=== PATIENT | female | born 1980 | race Caucasian/White ===

== ENCOUNTER 2017-08-22 14:02 | Inpatient (IN) | payer MEDICAID ==
[~2017-08-22] VITALS: Ht 152.4 cm; Wt 68.2 kg
[~2017-08-22 14:02] MED LIST: NITR-58 PO; PHEN-537 PO
[2017-08-22] MEDS ORDERED: morphine 10 MG INJ IM ONE ×2 (15:00→18:30)
--- NOTE | 2017-08-22 15:06 | RADRPT ---
PROCEDURE: US OB biophysical profile. CLINICAL INDICATION: decreased movements, contractions TECHNIQUE: Multiple sonographic images of the pelvis were obtained. The images were reviewed on a PACS workstation. COMPARISON: No prior studies are available for comparison. FINDINGS: There is a single viable intrauterine gestation. Cardiac activity is present with 158 beats per min [place]. There is a vertex presentation. The placenta is maternal right. There is no evidence of placental abruption. There is a normal amount of amniotic fluid with an NANCY = 17.3 cm. Biophysical profile: movement 2/2 tone 2/2. breathing 2/2 NANCY 2/2 Total 05/06 RPTAT: AA . IMPRESSION: Normal biophysical profile. . .Andrew Roque MD, MD Date Time Electronically viewed and signed by .Andrew Roque MD, MD on 08/22/2017 15:06 .S/
[2017-08-22] MEDS ORDERED: LACTATED RINGER'S 1,000 ML IV SCH (15:30)
[2017-08-22] MEDS ORDERED: OXYTOCIN 30 UNITS/LR 500 ML IV SCH ×2 (18:30)
[2017-08-22] MEDS ORDERED: OXYTOCIN 30 UNITS/LR 500 ML IV PRN (18:30)
[2017-08-22] MEDS ORDERED: MISOPROSTOL 200 MCG TAB PR PRN (18:30)
[2017-08-22] MEDS ORDERED: CARBOPROST 250 MCG INJ IM PRN (18:30)
[2017-08-22] MEDS ORDERED: LACTATED RINGER'S 1,000 ML IV PRN (18:30)
[2017-08-22] MEDS ORDERED: LIDOCAINE 1% (MPF) 30 ML INJ INJ PRN (18:30)
[2017-08-22] MEDS ORDERED: METHYLERGONOVINE 0.2 MG INJ IM PRN (18:30)
[2017-08-22 19:05] VITALS: BP 119/78; PULSE 79; RESP 18; Ht 152.4 cm; Wt 68.2 kg
[2017-08-22] MEDS: LACTATED RINGER'S 1,000 ML IV SCH (19:22)
[2017-08-22 21:16] LABS: BASOPHILS % 0.3 % (0.0-2.0); EOSINOPHILS # 0.1 10^3/ul (0.0-0.5); EOSINOPHILS % 1.2 % (0.0-7.0); HEMATOCRIT 36.6 % (37.0-47.0); HEMOGLOBIN 12.2 g/dl (12.0-16.0); LYMPHOCYTES # 1.2 10^3/ul (0.8-2.9); LYMPHOCYTES % 11.9 % (15.0-51.0); MEAN CORPUSCULAR HEMOGLOBIN 30.5 pg (29.0-33.0); MEAN CORPUSCULAR HGB CONC 33.3 g/dl (32.0-37.0); MEAN CORPUSCULAR VOLUME 91.5 fl (82.0-101.0); MEAN PLATELET VOLUME 12.6 fl (7.4-10.4); MONOCYTE # 0.4 10^3/ul (0.3-0.9); MONOCYTES % 3.9 % (0.0-11.0); NEUTROPHILS % 82.3 % (39.0-77.0); PLATELET COUNT 186 10^3/UL (140-415); RED CELL DISTRIBUTION WIDTH 13.1 % (11.5-14.5); WHITE BLOOD COUNT 9.7 10^3/ul (4.8-10.8)
[2017-08-22 21:37] LABS: INR 0.94; PARTIAL THROMBOPLASTIN TIME 26.1 Sec (25.0-35.0); PROTIME 12.6 Sec (12.2-14.2)
--- NOTE | 2017-08-22 23:16 | TRIAGE ---
OB Triage Datetime Report Generated by CPN: 08/22/2017 23:16 Datetime: 08/22/2017 23:00 Labor Evaluation Frequency: 4-5 Monitor Mode: External Duration (sec)2399: 50-70 Pattern: Normal: <= 5 Contractions in 10 Minutes Heart Rate FHR Baseline Rate: 135 Monitor Mode: External US FHR Baseline Changes: No Baseline Change Variability: Moderate 6-25 bpm Accelerations: 15X15 Datetime: 08/22/2017 22:40 Contraction Comments: EXTERNAL MONITORING BANDS ADJUSTED Datetime: 08/22/2017 22:00 Labor Evaluation Frequency: 2-5 Monitor Mode: External Duration (sec)2399: 70-90 Pattern: Normal: <= 5 Contractions in 10 Minutes Heart Rate FHR Baseline Rate: 145 Monitor Mode: External US FHR Baseline Changes: No Baseline Change Variability: Moderate 6-25 bpm Accelerations: 15X15 Category: Category I Datetime: 08/22/2017 21:00 Labor Evaluation Frequency: 2-5 Monitor Mode: External Duration (sec)2399: 60-80 Pattern: Normal: <= 5 Contractions in 10 Minutes Heart Rate FHR Baseline Rate: 135 Monitor Mode: External US FHR Baseline Changes: No Baseline Change Variability: Moderate 6-25 bpm Datetime: 08/22/2017 20:00 Labor Evaluation Frequency: 2-5 Monitor Mode: External Duration (sec)2399: 70-90 Pattern: Normal: <= 5 Contractions in 10 Minutes Heart Rate FHR Baseline Rate: 145 Monitor Mode: External US FHR Baseline Changes: No Baseline Change Variability: Moderate 6-25 bpm Category: Category I Datetime: 08/22/2017 19:50 Pain Assessment Comments: pt. sleeping, respirations visible Datetime: 08/22/2017 19:45 Vaginal Exam Dilatation (cms): 0.0 Effacement (%): 0 Station: -4 Exam By: dr. tateuman Datetime: 08/22/2017 19:42 Pain Assessment Comments: pt. moving position, pt. sitting up in bed, extra warm blanket provided to pt. blue emesis bag provided to pt. pt. feeling nauseous post morphine admin Datetime: 08/22/2017 19:41 Assessment Type: Ongoing Assessment Maternal Assessment Level of Consciousness: Fully Conscious Headache: Denies Blurred Vision: No Respiratory Effort: Unlabored; Regular Rhythm; Equal Expansion Nausea/Vomiting: Present RUQ Epigastric Pain: Denies Facial Edema: None Fall Risk Assessment History of Falling: (0) No Secondary Diagnosis: (0) No Ambulatory Aid: (0) Bedrest/Nurse Assist IV Therapy: (20) Yes Gait: (0) Normal/Bedrest/Immobile Mental Status: (0) Oriented to Own Ability Fall Score: 20 Fall Risk Score Definition: No Risk: No action required Datetime: 08/22/2017 19:00 Stage of : Labor Assessment Type: Admission Assessment Vaginal Bleeding: None Maternal Assessment Level of Consciousness: Fully Conscious DTR's/Clonus: DTRs 2+; No Clonus Headache: Denies Blurred Vision: No Respiratory Effort: Unlabored; Regular Rhythm; Equal Expansion Breath Sounds, Left: Clear and Equal Breath Sounds, Right: Clear and Equal Nausea/Vomiting: Denies RUQ Epigastric Pain: Denies Lower Extremities Edema: None Degree: None Upper Extremities Edema: None Degree: None Facial Edema: None Fall Risk Assessment History of Falling: (0) No Secondary Diagnosis: (0) No Ambulatory Aid: (0) Bedrest/Nurse Assist IV Therapy: (20) Yes Gait: (0) Normal/Bedrest/Immobile Mental Status: (0) Oriented to Own Ability Fall Score: 20 Fall Risk Score Definition: No Risk: No action required Labor Evaluation Frequency: 3-4 Duration (sec)2399: 50-60 Quality: Mild Pattern: Normal: <= 5 Contractions in 10 Minutes Resting Tone Emma: Relaxed Heart Rate FHR Baseline Rate: 140 Variability: Moderate 6-25 bpm Decelerations: None Category: Category I Pain Assessment Pain Scale: 6 Pain Presence: Intermittent Pain Type: Contraction Pain Location: Abdomen Pain Goal: 3 Datetime: 08/22/2017 18:59 Time of Arrival: 08/22/2017 18:45 EGA: 37.2 Arrived By: Wheelchair Arrived From: Other Unit in Hospital Datetime: 08/22/2017 18:10 Stage of : OB Triage Datetime: 08/22/2017 16:30 Labor Evaluation Frequency: 3-4 Monitor Mode: External Duration (sec)2399: 50-60 Quality: Mild Resting Tone Emma: Relaxed Heart Rate FHR Baseline Rate: 135 Monitor Mode: External US Variability: Moderate 6-25 bpm Accelerations: 10X10 Decelerations: None Category: Category I Pain Assessment Pain Scale: 3 Pain Presence: Intermittent Pain Type: Cramping Pain Location: Abdomen Pain Goal: 3 Pain Relief Measures: Comfort Measures Datetime: 08/22/2017 15:31 Labor Evaluation Frequency: 2-3 Monitor Mode: External Duration (sec)2399: 60-70 Resting Tone Emma: Relaxed Heart Rate FHR Baseline Rate: 145 Monitor Mode: External US Variability: Moderate 6-25 bpm Accelerations: 10X10 Decelerations: None Category: Category I Pain Assessment Pain Scale: 4 Pain Presence: Intermittent Pain Type: Cramping Pain Location: Abdomen; Perineum Pain Goal: 3 Pain Relief Measures: Comfort Measures Datetime: 08/22/2017 14:42 Stage of : OB Triage Datetime: 08/22/2017 14:30 Stage of : OB Triage Assessment Type: Triage Maternal Assessment Level of Consciousness: Fully Conscious DTR's/Clonus: DTRs 2+; No Clonus Headache: Denies Blurred Vision: No Respiratory Effort: Unlabored; Regular Rhythm; Equal Expansion Breath Sounds, Left: Clear and Equal Breath Sounds, Right: Clear and Equal Nausea/Vomiting: Denies RUQ Epigastric Pain: Denies Facial Edema: None Temperature Route: Axillary Fall Risk Assessment History of Falling: (0) No Secondary Diagnosis: (0) No Ambulatory Aid: (0) Bedrest/Nurse Assist IV Therapy: (0) No Gait: (0) Normal/Bedrest/Immobile Mental Status: (0) Oriented to Own Ability Fall Score: 0 Fall Risk Score Definition: No Risk: No action required Labor Evaluation Frequency: 2-3 Monitor Mode: External Duration (sec)2399: 40-50 Quality: Moderate Pattern: Normal: <= 5 Contractions in 10 Minutes Resting Tone Emma: Relaxed Interventions: Sterile Vaginal Exam Heart Rate FHR Baseline Rate: 145 Monitor Mode: External US Variability: Moderate 6-25 bpm Accelerations: 10X10 Decelerations: None Category: Category I Pain Assessment Pain Scale: 4 Pain Presence: Intermittent Pain Type: Cramping; Contraction Pain Location: Abdomen Pain Goal: 3 Pain Relief Measures: Comfort Measures Presentation 'A': Cephalic Datetime: 08/22/2017 14:29 Time of Arrival: 08/22/2017 13:48 EGA: 37.2 Arrived By: Ambulatory Arrived From: Home Chief Complaint: C/O UC'S THAT STARTED APPROX 1300, SMALL AMT OF BLEEDING, DENIES LEAKING Movement: Present Contractions: Regular Contractions: 2-3 Rupture of Membranes: Denies Vaginal Bleeding: Small Vaginal Discharge: Present Recent Sexual Intercouse: Denies Abdominal Trauma: Not Applicable Patient Complaints: Contractions; Cramping Time Provider Notified: 08/22/2017 14:42 Provider Notified: CARLIN Initial Plan: MONITOR, VE, Datetime: 08/22/2017 14:16 Vaginal Exam Dilatation (cms): 1.5 Effacement (%): 50 Station: -4
[2017-08-23] MEDS: LACTATED RINGER'S 1,000 ML IV SCH ×3 (02:30→18:09)
[2017-08-23] MEDS ORDERED: AMPICILLIN 2 GM/NS (PMX) 100 ML IV ONE (04:00)
[2017-08-23] MEDS ORDERED: CLINDAMYCIN 900 MG INJ IM ONE (08:00)
[2017-08-23] MEDS: AMPICILLIN 1 GM/NS (PMX) 50 ML IV SCH ×3 (08:37→16:25)
[2017-08-23] MEDS ORDERED: EPHEDrine SULFATE 50 MG/5 ML SYG IV PRN (15:00)
[2017-08-23] MEDS ORDERED: ONDANSETRON 4 MG INJ IV PRN (15:00)
[2017-08-23] MEDS ORDERED: DIPHENHYDRAMINE 50 MG INJ IV PRN (15:00)
[2017-08-23] MEDS ORDERED: FENTAnyl 2MCG/ML-ROPIV 0.2% 100 ML BAG EPI SCH (15:00)
[2017-08-23] MEDS ORDERED: NALOXONE (0.4 MG/ML) INJ IV PRN (15:00)
--- NOTE | 2017-08-23 15:33 | RADRPT ---
PROCEDURE: US OB. CLINICAL INDICATION: Evaluate well-being, amniotic fluid index TECHNIQUE: Multiple sonographic images of the pelvis were obtained. The images were reviewed on a PACS workstation. COMPARISON: No prior studies are available for comparison. FINDINGS: There is a single viable intrauterine gestation. Cardiac activity is present with 158 beats per min [place] There is a cephalic and variable presentation. The placenta is posterior. There is no evidence for an abruption or placenta previa. There is a normal amount of amniotic fluid with an NANCY = 16.8 cm There are no adnexal masses.. IMPRESSION: 1. Single viable intrauterine gestation in variable presentation. 2. Posterior placenta without evidence of previa or abruption. 3. Normal amount of amniotic fluid with an NANCY of 16.8 cm. RPTAT:AAJJ Physician Alessia Date Time Electronically viewed and signed by Physician Alessia on 08/23/2017 15:33 /
[2017-08-23 16:24] LABS: BASOPHILS % 0.2 % (0.0-2.0); EOSINOPHILS # 0.1 10^3/ul (0.0-0.5); EOSINOPHILS % 0.8 % (0.0-7.0); HEMATOCRIT 33.3 % (37.0-47.0); HEMOGLOBIN 11.2 g/dl (12.0-16.0); LYMPHOCYTES # 0.6 10^3/ul (0.8-2.9); LYMPHOCYTES % 7.2 % (15.0-51.0); MEAN CORPUSCULAR HEMOGLOBIN 30.4 pg (29.0-33.0); MEAN CORPUSCULAR HGB CONC 33.6 g/dl (32.0-37.0); MEAN CORPUSCULAR VOLUME 90.5 fl (82.0-101.0); MEAN PLATELET VOLUME 12.1 fl (7.4-10.4); MONOCYTE # 0.3 10^3/ul (0.3-0.9); MONOCYTES % 2.9 % (0.0-11.0); NEUTROPHIL # 7.5 10^3/ul (1.6-7.5); NEUTROPHILS % 88.2 % (39.0-77.0); PLATELET COUNT 175 10^3/UL (140-415); RED BLOOD COUNT 3.68 10^6/ul (4.20-5.40); RED CELL DISTRIBUTION WIDTH 13.3 % (11.5-14.5); WHITE BLOOD COUNT 8.5 10^3/ul (4.8-10.8)
--- NOTE | 2017-08-23 16:59 | HP ---
Date/Time of Note Date/Time of Note Late entry DATE: 08/22/17 OB - History Hx of Present Free Text/Dictation 36-year-old female 4 para 3 at 37 weeks gestation admitted complaining of liver pain started a few hours prior to admission Chief Complaint: Liver contractions Last Menstrual Period: Nov 06, 2016 Estimated Due Date: Sep 10, 2017 : 4 Para: 3 Care: Good Care Ultrasounds: Normal mid trimester US Obstetrical Complications: None Medical Complications: None Past Family/Social History * Past Medical, Surgical, Family and Obstetric Histories reviewed from chart. Blood Type: O+ Rubella: immune RPR/VDRL: Negative GBS Status: Unknown HBsAG: Negative OB Admission Exam Vital Signs Vital Signs Vital Signs Date Time Temp Pulse Resp B/P Pulse Ox O2 Delivery O2 Flow Rate FiO2 08/22/17 19:05 97.8 79 18 119/78 Physical Exam HEENT: WNL Heart: Rhythm Normal Lungs: Clear, Equal Abdomen: WNL Extremities: Normal Reflexes: Normal Cervical Dilatation: Fingertip Effacement: 25% Station: -3 Membranes: Intact Heart Rate: 150's Accelerations: Accelerations Present Decelerations: No Decelerations Varibility: Moderate Contractions on Admission: < 5 Minutes Apart Date/Time Contractions Began: August 22, 2017 Frequency of Contractions: Every 3 4 minutes Duration: Over 50/60 seconds Intensity: Firm Last 72 hours Lab Results CBC & BMP 08/22/17 20:56 08/23/17 16:18 OB Assessment/Plan Other Assessment: 37 weeks gestation Persistent uterine contractions not relieving Plan: Expectant Management Other plan: Continue to observe for cervical dilatation EULA MEANS MD Aug 23, 2017 16:59
--- NOTE | 2017-08-23 17:01 | PN ---
Date/Time of Note Date/Time of Note DATE: 08/23/17 TIME: 16:59 OB Subjective Subjective Subjective Was complaining of severe liver contractions every 2 3 minutes OB Objective Objective Objective Temperature was 99 9 Cervix remained unchanged General physical exam is grossly normal On electronic monitoring heart tones are reactive however tachycardic Normal amniotic fluid volume OB Assessment/Plan Other Assessment: 37 weeks gestation Labor contractions Possible urinary tract infection versus amnionitis Hard to interpret the data because of unknown GBS Other plan: Started patient on Unasyn Epidural anesthesia was given with considerable improvement of symptoms We will continue Unasyn for at least 24-48 hours Obtain GBS results EULA MEANS MD Aug 23, 2017 17:01
[2017-08-23] MEDS: AMPICILLIN/SULB 3 GM/NS (PMX) 100 ML IVPB SCH ×2 (18:47→23:52)
[2017-08-24] MEDS ORDERED: OXYTOCIN 30 UNITS/LR 500 ML IV SCH ×2 (00:30→12:20)
[2017-08-24] MEDS: LACTATED RINGER'S 1,000 ML IV SCH ×2 (01:29→09:10)
[2017-08-24] MEDS ORDERED: GUAIFENESIN 20 MG/ML 5ML CUP PO PRN (06:30)
[2017-08-24] MEDS: AMPICILLIN/SULB 3 GM/NS (PMX) 100 ML IVPB SCH ×4 (06:36→23:50)
--- NOTE | 2017-08-24 10:22 | LDN ---
Date/Time of Note Date/Time of Note DATE: 08/24/17 TIME: 10:20 Delivery Summary Placenta Delivered: Spontaneously Meconium: Light Episiotomy: No Laceration repair: primary perineal repiared with 3-0 vicryl Anesthesia type: Epidural Sponge & Needle done & correct: Yes All needle counts correct: Yes Any foreign bodies felt in the: No Problems: Infant Delivery Information Sex Sex: male Suctioning Nose & mouth suctioned at [place]: Yes Umbilical Cord Umbilical cord with: 3 Vessels Cord presentations: nuchal cord Nuchal cord present X: 1 Cord Blood was obtained: Yes FELICIANO OJEDA MD Aug 24, 2017 10:22
[2017-08-24 11:04] LABS: ADD UMIC YES; UR ASCORBIC ACID NEGATIVE (NEGATIVE); UR BACTERIA FEW /HPF (NONE SEEN); UR BILIRUBIN (Dip) NEGATIVE (NEGATIVE); UR BLOOD (Dip) 3+ mg/dL (NEGATIVE); UR CLARITY CLEAR (CLEAR); UR COLOR YELLOW (YELLOW); UR GLUCOSE (Dip) NEGATIVE (NEGATIVE); UR KETONES (Dip) 2+ mg/dL (NEGATIVE); UR LEUKOCYTE ESTERASE (Dip) NEGATIVE Leu/ul (NEGATIVE); UR NITRITE (Dip) NEGATIVE (NEGATIVE); UR RBC > 182 /HPF (0-5); UR SPECIFIC GRAVITY (Dip) 1.012 (1.003-1.030); UR TOTAL PROTEIN (Dip) 1+ mg/dl (NEGATIVE); UR UROBILINOGEN (Dip) 2+ mg/dL (NEGATIVE)
[2017-08-24] MEDS: LACTATED RINGER'S 1,000 ML IV* SCH ×2 (12:20→17:38)
[2017-08-24] MEDS ORDERED: BENZOCAINE 20% 56 ML SPRAY TOP PRN (12:30)
[2017-08-24] MEDS ORDERED: METHYLERGONOVINE 0.2 MG INJ IM PRN (12:30)
[2017-08-24] MEDS ORDERED: CARBOPROST 250 MCG INJ IM PRN (12:30)
[2017-08-24] MEDS ORDERED: WITCH HAZEL/GLYCERIN PAD PR PRN (12:30)
[2017-08-24] MEDS ORDERED: HYDROCODONE/APAP (5/325) TAB PO PRN (12:30)
[2017-08-24] MEDS ORDERED: ACETAMINOPHEN 325 MG TAB PO PRN ×2 (12:30)
[2017-08-24] MEDS ORDERED: OXYTOCIN 30 UNITS/LR 500 ML IV PRN (12:30)
[2017-08-24] MEDS ORDERED: ONDANSETRON 4 MG INJ IV PRN (12:30)
[2017-08-24] MEDS ORDERED: MISOPROSTOL 200 MCG TAB PR PRN (12:30)
[2017-08-24 12:45] VITALS: BP 121/79; PULSE 86; RESP 20
[2017-08-24 16:10] VITALS: BP 107/66; PULSE 86; RESP 20
[2017-08-24] MEDS: IBUPROFEN 600 MG TAB PO SCH ×2 (17:37→23:50)
[2017-08-24 19:45] VITALS: BP 85/57; PULSE 80; RESP 18
[2017-08-24] MEDS: SENNA/DOCUSATE NA (8.6MG/50MG) TAB PO SCH (21:02)
[2017-08-25] VITALS: BP 102/66; PULSE 60; RESP 18
[2017-08-25] MEDS: LACTATED RINGER'S 1,000 ML IV* SCH ×2 (02:22→13:57)
[2017-08-25 04:15] VITALS: BP 88/52; PULSE 66; RESP 18
[2017-08-25] MEDS: IBUPROFEN 600 MG TAB PO SCH ×4 (05:42→23:48)
[2017-08-25] MEDS: AMPICILLIN/SULB 3 GM/NS (PMX) 100 ML IVPB SCH ×4 (05:42→23:48)
[2017-08-25 08:00] VITALS: BP 107/53; PULSE 65; RESP 20
--- NOTE | 2017-08-25 09:40 | RADRPT ---
PROCEDURE: XR Chest. CLINICAL INDICATION: chest pain TECHNIQUE: PA and lateral views of the chest were obtained COMPARISON: None FINDINGS: The heart and mediastinum are within normal limits. There are bilateral lower lobe infiltrates. There is no pleural effusion or pneumothorax. The bones and soft tissues are unremarkable. RPTAT: AA IMPRESSION: Bilateral lower lobe infiltrates. .Andrew Roque MD, MD Date Time Electronically viewed and signed by .Andrew Roque MD, on 08/25/2017 09:39 .S/
--- NOTE | 2017-08-25 10:01 | QN ---
Documentation Comment day 1 Patient complains of productive cough since admission T-max 100 in the last 24 hours Abdomen soft nontender/nondistended Fundus firm Extremities nontender Assessment plan CBC, CMP today Chest x-ray today We will obtain medical consult for evaluation of URI Continue with antibiotics Continue with present management ELEANOR STEVENS MD Aug 25, 2017 10:01
[2017-08-25 11:14] LABS: ABNORMAL IP MESSAGE 1; BASOPHILS % 0.2 % (0.0-2.0); EOSINOPHILS # 0.1 10^3/ul (0.0-0.5); EOSINOPHILS % 1.8 % (0.0-7.0); HEMATOCRIT 31.9 % (37.0-47.0); HEMOGLOBIN 10.7 g/dl (12.0-16.0); LYMPHOCYTES # 0.6 10^3/ul (0.8-2.9); LYMPHOCYTES % 8.9 % (15.0-51.0); MEAN CORPUSCULAR HEMOGLOBIN 30.6 pg (29.0-33.0); MEAN CORPUSCULAR HGB CONC 33.5 g/dl (32.0-37.0); MEAN CORPUSCULAR VOLUME 91.1 fl (82.0-101.0); MEAN PLATELET VOLUME 12.1 fl (7.4-10.4); MONOCYTE # 0.3 10^3/ul (0.3-0.9); MONOCYTES % 3.9 % (0.0-11.0); NEUTROPHIL # 5.7 10^3/ul (1.6-7.5); NEUTROPHILS % 84.7 % (39.0-77.0); PLATELET COUNT 141 10^3/UL (140-415); RED CELL DISTRIBUTION WIDTH 13.6 % (11.5-14.5); WHITE BLOOD COUNT 6.7 10^3/ul (4.8-10.8)
[2017-08-25 11:21] LABS: POSITIVE DIFF @See below
[2017-08-25 11:28] LABS: ALBUMIN 2.5 g/dl (3.3-4.9); ALBUMIN/GLOBULIN RATIO 0.89; BILIRUBIN,INDIRECT 0.1 mg/dl (0-1.1); BILIRUBIN,TOTAL 0.1 mg/dl (0.2-1.3); CALCIUM 8.2 mg/dl (8.4-10.2); CREATININE 0.53 mg/dl (0.44-1.00); POTASSIUM 3.5 mmol/L (3.5-5.1); TOTAL PROTEIN 5.3 g/dl (6.1-8.1)
[2017-08-25 12:00] VITALS: BP 108/72; PULSE 72; RESP 20
[2017-08-25] MEDS: SENNA/DOCUSATE NA (8.6MG/50MG) TAB PO SCH ×2 (12:03→21:21)
--- NOTE | 2017-08-25 12:07 | CONS ---
DATE OF ADMISSION: 08/22/2017 DATE OF CONSULTATION: 08/25/2017 REASON FOR CONSULTATION: Fever. HISTORY OF PRESENT ILLNESS: Isabel is a 36-year-old, 3, para 3, who had presented to Labor and Delivery Department with some abdominal pain and a little bit of vaginal bleeding. The patient was found to be in active labor. However, during labor, she was found to have fever and fever peaked at 101.7. Based on that, urine cultures were sent. Patient was started on Unasyn intravenously by the obstetricians. However, unfortunately the patient was GBS unknown and her information was unavailable. The patient did say she had never had a flu shot. Under. However with antibiotic therapy, the patient went on to have an uneventful delivery and we were consulted to assist in diagnosis and antibiotic management. PAST MEDICAL HISTORY: Essentially none. PAST SURGICAL HISTORY: Patient denies. ALLERGIES: SHE HAS NO KNOWN DRUG ALLERGIES. SOCIAL HISTORY: Denies tobacco, alcohol, or illicit drug use. Also denies exposure to secondhand smoke. MEDICATION: vitamins only. REVIEW OF SYSTEMS: Her twelve point review of system was done. Pertinent findings as in HPI. On admission, the patient had some cough, however, since yesterday, which was not present prior to admission. PHYSICAL EXAMINATION: VITAL SIGNS: At this time, temperature 97.4, pulse 165, respirations 20, blood pressure 107/53, saturations were normal on room air. GENERAL APPEARANCE: Mildly lethargic, regular-looking female, alert and oriented. No distress. HEENT: Head normocephalic. Pupils equal, round, reactive. Mucous membranes moist. Posterior pharynx free of exudate. NECK: Supple. CHEST: When she coughs, she has a she has audible crackles in the bases of her lungs bilaterally posteriorly. Superiorly, her lungs are clear. HEART: S1, S2. No murmurs. ABDOMEN: Still mildly tender from recent delivery, but other than that, nondistended, soft, with normoactive bowel sounds in four quadrants. EXTREMITIES: Lower extremities negative for edema. SKIN: Devoid of rash or jaundice. LABORATORY: Her last CBC was done 08/23/2017. At that time, she had normal white count, hemoglobin was 11.2, platelets 175. She had mild neutrophilia at 88.2. Coag profile is unremarkable. Urinalysis was not suggestive of an infection. She has had some hematuria and some ketonuria. Urine cultures so far have been negative since 08/23/2017. However, blood cultures were not done. A chest x-ray though was just reported and confirms presence of bilateral lower lobe infiltrates. ASSESSMENT: A 36-year-old female, 3, now para 3, who developed fever while in active labor, now managed for bilateral lower lobe pneumonia. RECOMMENDATIONS: As follows: 1. Continue with routine care. 2. Continue Unasyn as the patient has had no fever since commencement of Unasyn and it is adequate coverage for infection. We can switch to oral Augmentin at discharge or even Levaquin if that is considered safe for breast feeding mother. Subsequently patient asked about the flu shot, and I recommend completing antibiotic course prior to administering this administering at discharge. 3. If fever recurs, however, the patient will need a CBC, blood cultures and sputum culture. 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 4. Thank for this consult. We will continue to follow the patient with you. Please feel free to contact us on extension [phone] with any questions. Dictated By: Jeanie Covington MD /shane/jayro /Document#: [id number]
[2017-08-25] MEDS: GUAIFENESIN/DM 5ML CUP PO PRN ×2 (12:18→19:43)
[2017-08-25 16:30] VITALS: BP 103/61; PULSE 94
--- NOTE | 2017-08-25 17:21 | DS ---
Date/Time of Note Date/Time of Note home next day DATE: 08/25/17 TIME: 17:19 Obstetrical Discharge Record Final Diagnosis Final Diagnosis: Term delivered Other Final Diagnosis S/P vaginal delivery Vaginal Delivery Obstetrical Delivery: Spontaneous, Laceration, Repaired Complications Augmentation: Yes (orderred by oncall physician ) Condition on Discharge Physical Assessment Voiding: Yes Bowel Movement: Yes Breast: Soft, non-tender, Filling Fundus: Firm Abdomen and Incision: abdomen: soft bs + Episiotomy: perineum healing Calf Tenderness: No Patient Condition: Good EULA MEANS MD Aug 25, 2017 17:21
--- NOTE | 2017-08-25 17:24 | PD.PPDC ---
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
[2017-08-25] MEDS ORDERED: IBUP-1542 PO (17:25)
[2017-08-25] MEDS ORDERED: LEVO750T25 PO (17:25)
--- NOTE | 2017-08-25 17:29 | DS ---
Date/Time of Note Date/Time of Note DATE: 08/25/17 TIME: 17:27 Discharge Summary Admission/Discharge Info Admit Date/Time Aug 22, 2017 at 18:15 Discharge Date/Time 08/26/2017 Discharge Diagnosis S/P vaginal delivery and bilateral lower lobe pneumonia Patient Condition: Good Procedures vaginal delivery Hx of Present Illness 36 y/o female with uterine contractions at 37 weeks and noticed to have bilateral lower lobe pneumonia Hospital Course uncomplicated Home Meds Active Scripts Ibuprofen* (Ibuprofen*) 600 Mg Tablet, 600 MG PO Q6, #30 TAB 0 Refills Prov:EULA MEANS MD 08/25/17 Levofloxacin* (Levaquin*) 750 Mg Tablet, 750 MG PO DAILY@06, #10 TAB 0 Refills Prov:EULA MEANS MD 08/25/17 Phenazopyridine Hcl* (Pyridium*) 100 Mg Tab, 100 MG PO TID Y for URINARY PAIN, # 9 TAB Prov:SHEYLA VALDEZ 07/23/16 Discontinued Scripts Nitrofurantoin Monohyd Macrocr* (Macrobid*) 100 Mg Capsr, 100 MG PO BID for 7 Days, CAP Prov:SHEYLA VALDEZ 07/23/16 Follow-up Plan 2 weeks Primary Care Provider Care Physician No Primary Time spent on discharge: > 30 minutes Pending Labs Laboratory Tests Test 08/25/17 10:44 White Blood Count 6.710^3/ul (4.8-10.8) Red Blood Count 3.5010^6/ul (4.20-5.40) Hemoglobin 10.7g/dl (12.0-16.0) Hematocrit 31.9% (37.0-47.0) Mean Corpuscular Volume 91.1fl (82.0-101.0) Mean Corpuscular Hemoglobin 30.6pg (29.0-33.0) Mean Corpuscular Hemoglobin Concent 33.5g/dl (32.0-37.0) Red Cell Distribution Width 13.6% (11.5-14.5) Platelet Count 51822^3/UL (140-415) Mean Platelet Volume 12.1fl (7.4-10.4) Neutrophils % 84.7% (39.0-77.0) Lymphocytes % 8.9% (15.0-51.0) Monocytes % 3.9% (0.0-11.0) Eosinophils % 1.8% (0.0-7.0) Basophils % 0.2% (0.0-2.0) Nucleated Red Blood Cells % 0.0/100WBC (0.0-0.0) Neutrophils # 5.710^3/ul (1.6-7.5) Lymphocytes # 0.610^3/ul (0.8-2.9) Monocytes # 0.310^3/ul (0.3-0.9) Eosinophils # 0.110^3/ul (0.0-0.5) Basophils # 0.010^3/ul (0.0-0.1) Nucleated Red Blood Cells # 0.010^3/ul (0.0-0.0) Sodium Level 141mmol/L (135-144) Potassium Level 3.5mmol/L (3.5-5.1) Chloride Level 111mmol/L (97-110) Carbon Dioxide Level 21mmol/L (21-31) Anion Gap 13 (8-16) Blood Urea Nitrogen 3mg/dl (7-20) Creatinine 0.53mg/dl (0.44-1.00) Glucose Level 136mg/dl (70-220) Calcium Level 8.2mg/dl (8.4-10.2) Total Bilirubin 0.1mg/dl (0.2-1.3) Direct Bilirubin 0.00mg/dl (0.00-0.20) Indirect Bilirubin 0.1mg/dl (0-1.1) Aspartate Amino Transf (AST/SGOT) 26IU/L (15-46) Alanine Aminotransferase (ALT/SGPT) 34IU/L (13-69) Alkaline Phosphatase 114IU/L (42-121) Total Protein 5.3g/dl (6.1-8.1) Albumin 2.5g/dl (3.3-4.9) Globulin 2.80g/dl (1.3-3.2) Albumin/Globulin Ratio 0.89 EULA MEANS MD Aug 25, 2017 17:29
[2017-08-25 20:00] VITALS: BP 111/67; PULSE 98; RESP 20
[2017-08-26 04:30] VITALS: BP 105/58; PULSE 81; RESP 18
[2017-08-26] MEDS: IBUPROFEN 600 MG TAB PO SCH ×2 (05:49→11:55)
[2017-08-26] MEDS ORDERED: LEVOFLOXACIN 750 MG TABLET PO SCH (06:00)
[2017-08-26 08:20] VITALS: BP 103/68; PULSE 80; RESP 18
[2017-08-26] MEDS: SENNA/DOCUSATE NA (8.6MG/50MG) TAB PO SCH (09:00)
== END 2017-08-26 18:04 | disposition home or self-care (01) | DRG 775 ==
LOC: OBT 14:02 → L-D 14:04 → OBT 18:15 → PP1 08-24 12:40
PROVIDERS: ADMIT Obstetrics & Gynecology; ATTEND Obstetrics & Gynecology
PROC: 4A1HXCZ Monitoring of Products of Conception, Cardiac Rate, External Approach (ICD-10-PCS; 2017-08-22)
PROC: 10E0XZZ Delivery of Products of Conception, External Approach (ICD-10-PCS; principal; 2017-08-24)
PROC: 0HQ9XZZ Repair Perineum Skin, External Approach (ICD-10-PCS; 2017-08-24)
DX: O99.52 Diseases of the respiratory system complicating childbirth (principal); J18.9 Pneumonia, unspecified organism; O70.0 First degree perineal laceration during delivery; Z37.0 Single live birth; Z3A.37 37 weeks gestation of pregnancy
CPT/HCPCS: 36415; 62319; 71020; 76815; 76818; 80053; 81001; 85025; 85610; 85730; 86592; 86900; 86901; 87040; 87086; 87340; 96372; 99464; G0463; J0290; J0295; J2270; J2590; J3010; J7120

== ENCOUNTER 2019-02-11 02:05 | Emergency (ER) | payer MEDICAID ==
[~2019-02-11] VITALS: Wt 63.8 kg
[~2019-02-11 02:05] MED LIST changes: +IBUP-1542 PO; +LEVO750T25 PO; -NITR-58 PO
[2019-02-11] MEDS ORDERED: HYDROCODONE/APAP (5/325) TAB PO ONE (03:30)
[2019-02-11] MEDS ORDERED: CEPH-443 PO (05:47)
[2019-02-11 05:55] VITALS: BP 119/74; PULSE 60; RESP 18
--- NOTE | 2019-02-11 05:56 | ERD ---
ER Documentation Chief Complaint Chief Complaint R SIDE PELVIC PAIN S/P IUD INSERTION 6 DAYS AGO HPI This is a 38 G4, P4 female presents to the ED complaining of right lower pelvic pain status post having an IUD inserted 6 days ago. Patient states her pain is intermittent, and temporarily improved with ibuprofen. She also presents with a few days of dysuria, frequency, urgency. No vaginal bleeding. No back pain or flank pain. No nausea or vomiting. No other complaints. ROS All systems reviewed and are negative except as per history of present illness. Medications Home Meds Active Scripts Cephalexin* (Keflex*) 500 Mg Capsule, 500 MG PO BID for 7 Days, CAP Prov:GILBERTPAULAKARLOS IDOP-C 02/11/19 Ibuprofen* (Ibuprofen*) 600 Mg Tablet, 600 MG PO Q6, #30 TAB 0 Refills Prov:EULA MEANS MD 08/25/17 Levofloxacin* (Levaquin*) 750 Mg Tablet, 750 MG PO DAILY@06, #10 TAB 0 Refills Prov:EULA MEANS MD 08/25/17 Phenazopyridine Hcl* (Pyridium*) 100 Mg Tab, 100 MG PO TID PRN for URINARY PAIN, #9 TAB Prov:SHEYLA VALDEZ 07/23/16 Allergies Allergies: Coded Allergies: No Known Allergy (Verified , 07/23/16) PMhx/Soc History of Surgery: No Anesthesia Reaction: No Hx Neurological Disorder: No Hx Respiratory Disorders: No Hx Cardiac Disorders: No Hx Psychiatric Problems: No Hx Miscellaneous Medical Probl: No Hx Alcohol Use: No Hx Substance Use: No Hx Tobacco Use: No Smoking Status: Never smoker Physical Exam Vitals Vital Signs Date Temp Pulse Resp B/P (MAP) Pulse Ox O2 O2 Flow FiO2 Time Delivery Rate 02/11/19 98.2 83 20 127/74 97 02:08 (91) Physical Exam Const: No acute distress Head: Atraumatic Eyes: Normal Conjunctiva ENT: Normal External Ears, Nose and Mouth. Neck: Full range of motion. No meningismus. Resp: Clear to auscultation bilaterally Cardio: Regular rate and rhythm, no murmurs Abd: Soft, + mild bilateral pelvic tenderness palpation, left greater than right. Non distended. Normal bowel sounds. Negative McBurney's, negative Mu rphy's. No rebound, no guarding. Skin: No petechiae or rashes Back: No midline or flank tenderness Ext: No cyanosis, or edema Neur: Awake and alert Psych: Normal Mood and Affect Results 24 hrs Laboratory Tests Test 02/11/19 03:35 02/11/19 03:39 Urine Color YELLOW Urine Clarity CLEAR Urine pH 5.0 Urine Specific [place] 1.018 Urine Ketones NEGATIVE mg/dL Urine Nitrite NEGATIVE mg/dL Urine Bilirubin NEGATIVE mg/dL Urine Urobilinogen NEGATIVE mg/dL Urine Leukocyte Esterase TRACE Brooke/ul Urine Microscopic RBC 2 /HPF Urine Microscopic WBC 3 /HPF Urine Squamous Epithelial Cells FEW /HPF Urine Mucus FEW /HPF Urine Hemoglobin 2+ mg/dL Urine Glucose NEGATIVE mg/dL Urine Total Protein NEGATIVE mg/dl POC Beta HCG, Qualitative NEGATIVE Current Medications Medications Dose Sig/Estrella Start Time Status Last (Trade) Ordered Route PRN Stop Time Admin Dose Reason Admin 1 tab ONCE ONCE 02/11/19 DC 02/11/19 Acetaminophen PO 03:30 03:40 / 02/11/19 03:31 Hydrocodone Bitart (Eureka (5/325)) Procedures/MDM LABS Urine: + trace leuk esterase with hematuria. neg nitrites. Beta hcg: negative DIAGNOSTIC IMAGING: PROCEDURE: Pelvic ultrasound color-flow Doppler of the adnexa. CLINICAL INDICATION: Pelvic pain. Recent placement intrauterine device. TECHNIQUE: Multiple sagittal, oblique and transverse real time images were obtained of the lower abdomen and pelvis using a transabdominal as well a transvaginal approach. Color-flow Doppler of the adnexa. COMPARISON: None. FINDINGS: The uterus is normal limits in size measuring 8.93 x 3.78 x 5.3 cm. Myometrial echoes are homogeneous without focal lesions. Intrauterine device is not demonstrated. Endometrium otherwise homogeneous without focal lesion normal thickness maximal AP diameter 0.49 cm. Ovaries are normal in size the right measuring 2.91 x 1.84 x 1.79 cm and the left measuring 3.0 x 1.72 x 1.66 cm. No ovarian masses. Flow to both ovaries without ultrasonic evidence of ovarian torsion. Mild free fluid in the cul-de-sac. No adnexal masses demonstrated. IMPRESSION: 1. Intrauterine device is not demonstrated. 2. Unremarkable uterus. 3. Unremarkable ovaries. No ultrasonic evidence of ovarian torsion. 4. Mild free fluid in the cul-de-sac. 5. No adnexal masses demonstrated. ED COURSE: The patient was given Eureka The medication was well tolerated and the patient had market improvement in symptoms. The patient remained stable throughout ED course. MEDICAL DECISION MAKIN-year-old G4, P4 female presents with pelvic pain and urinary symptoms status post IUD and insertion. She has no evidence of peritonitis on physical exam. Her UA did show evidence of mild UTI, which could be causing some of her pain. Interestingly, pelvic ultrasound did not visualize an intrauterine device. I discussed this with the patient and family at bedside. Patient plans on visiting her [facility] this week to have her intrauterine device removed. She is provided copies of today's work-up to give to her [facility]. Her symptoms improved status post Eureka. History and physical not consistent with ovarian torsion, ruptured ovarian cyst, appendicitis, nephrolithiasis, pyelonephritis, or any other emergent abdominal pathology. Patient can be discharged home with strict return precautions. 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 Departure Diagnosis: Primary Impression: Pelvic pain Additional Impression: UTI (urinary tract infection) Urinary tract infection type: acute cystitis Hematuria presence: without hematuria Qualified Codes: N30.00 - Acute cystitis without hematuria Condition: Stable Patient Instructions: Understanding Urinary Tract Infections (UTIs), Control: IUD (Intrauterine Device) Referrals: [facility] [place] [id number] [facility] [address] [place], [place] [id number] OFFICE FAX JODIE BENJAMIN [address] [place], [place] [id number] [address] BEJARANO [place]TON [address] [place], [place] [id number] RASHMI BOYLE [address] [facility], [address] [address] [address] [address] [place], [place] [id number] [facility] [address] [place], [place] [id number] [facility] [id number] - DR ESPARZA KALE [address], [facility] [address] [address] CHRISTY, [place] [address] [facility] [address], [facility] [address] [address], [facility] [address] [place] [address] Additional Instructions: Call your primary care doctor TOMORROW for an appointment during the next 2-4 days and bring all the information and medications prescribed. If the symptoms get worse and your provider is unavailable, return to the Emergency Department immediately. BATSHEVA HUNT PA-C February 11, 2019 05:56
== END 2019-02-11 05:55 | disposition home or self-care (01) ==
LOC: FTE 02:05
DX: N30.00 Acute cystitis without hematuria (principal)
CPT/HCPCS: 76830; 76856; 81001; 81025; Z7502; Z7610